=== PATIENT | female | born 1980 | race Caucasian/White ===

== ENCOUNTER 2016-11-17 14:52 | Emergency (ER) | payer OTHER ==
[~2016-11-17] VITALS: Ht 165.1 cm; Wt 84.9 kg
[2016-11-17] MEDS ORDERED: KETOROLAC 30 MG/1 ML ONE (15:26)
[2016-11-17] MEDS ORDERED: ONDANSETRON 2MG/ML, 2ML ONE (15:26)
[2016-11-17] MEDS ORDERED: SODIUM CHLORIDE FLUSH 10ML SYR IVF ONE (15:30)
[2016-11-17] MEDS ORDERED: KETOROLAC 30 MG/1 ML IVPush ONE (15:30)
[2016-11-17] MEDS ORDERED: LORazepam 2 MG/ML, 1ML IVPush ONE (15:30)
[2016-11-17] MEDS ORDERED: ONDANSETRON 2MG/ML, 2ML IVPush ONE (15:30)
[2016-11-17 16:07] LABS: HEMATOCRIT 44.7 % (34.6-47.8); HEMOGLOBIN 14.9 g/dL (11.7-16.4); WHITE BLOOD COUNT 7.1 x10^3/uL (3.4-10)
[2016-11-17 16:17] LABS: BLOOD UREA NITROGEN 9 mg/dL (7-18)
[2016-11-17 16:24] LABS: IS PT STATUS REG ER OR PRE ER? YES
[2016-11-17 16:36] VITALS: BP 128/77
== END 2016-11-17 17:51 | disposition home or self-care (01) ==
LOC: ED 17:23
DX: R07.89 Other chest pain (principal); G43.909 Migraine, unspecified, not intractable, without status migrainosus; M94.0 Chondrocostal junction syndrome [Tietze]
CPT/HCPCS: 36415; 70450; 71020; 80048; 82040; 84484; 85025; 85379; 93005; 96374; 96375; 99285; J1885; J2405

== ENCOUNTER → 2017-08-13 | Outpatient (CLI) | payer OTHER | END | disposition home or self-care (01) | LOC: CVU 11:48 | PROVIDERS: ATTEND Psychiatry & Neurology Neurology | DX: H93.19 Tinnitus, unspecified ear (principal) | CPT/HCPCS: 93880 ==

== ENCOUNTER → 2017-08-19 | Outpatient (CLI) | payer OTHER | LOC: CFH 12:05 | PROVIDERS: ATTEND Psychiatry & Neurology Neurology | DX: H93.13 Tinnitus, bilateral (principal) | CPT/HCPCS: 70551 ==

== ENCOUNTER → 2017-11-21 | Outpatient (CLI) | payer OTHER ==
[2017-11-21 16:06] LABS: BASOPHILS # (AUTO) 0.05 x10^3/uL (0-0.1); BASOPHILS % (AUTO) 1 % (0-1); EOSINOPHILS # (AUTO) 0.06 x10^3/uL (0-0.4); EOSINOPHILS % (AUTO) 1 % (1-7); LYMPHOCYTES # (AUTO) 1.61 x10^3/uL (1-3.4); LYMPHOCYTES % (AUTO) 27 % (22-44); MD NO; MEAN CORPUSCULAR HEMOGLOBIN 29.4 pg (27.0-34.8); MEAN CORPUSCULAR HGB CONC 34.9 g/dL (32.4-35.8); MEAN CORPUSCULAR VOLUME 84.4 fL (80-100); MEAN PLATELET VOLUME 7.4 fL (7.4-10.4); MONOCYTES # (AUTO) 0.38 x10^3/uL (0.2-0.8); MONOCYTES % (AUTO) 6 % (2-9); NEUTROPHILS # (AUTO) 3.79 x10^3/uL (1.8-6.8); NEUTROPHILS % (AUTO) 64 % (42-75); PLATELET COUNT 296 x10^3/uL (130-400); RED BLOOD COUNT 4.88 x10^6/uL (3.82-5.3); RED CELL DISTRIBUTION WIDTH 12.7 % (9.6-15.2)
[2017-11-21 16:12] LABS: ALANINE AMINOTRANSFERASE 22 U/L (12-78); ALBUMIN 3.5 g/dL (3.4-5.0); ANION GAP 4 mmol/L (5-15); CALCIUM 8.7 mg/dL (8.5-10.1); CHLORIDE 110 mmol/L (98-107); CREATININE 0.83 mg/dL (0.55-1.02)
[2017-11-21 16:22] LABS: ALKALINE PHOSPHATASE 57 U/L (45-117); BILIRUBIN,TOTAL 0.2 mg/dL (0.2-1.0); FREE T4 (FREE THYROXINE) 1.11 ng/dL (0.76-1.46); TOTAL PROTEIN 7.2 g/dL (6.4-8.2)
== END | disposition home or self-care (01) ==
LOC: LAB 15:48
PROVIDERS: ATTEND Physician Assistant
DX: R11.2 Nausea with vomiting, unspecified (principal); R13.19 Other dysphagia; R68.81 Early satiety
CPT/HCPCS: 36415; 80053; 82784; 83516; 84439; 84443; 85025

== ENCOUNTER 2017-11-26 05:40 | Day surgery (SDC) | payer OTHER ==
[~2017-11-26] VITALS: Ht 162.6 cm; Wt 81.1 kg
[2017-11-26 06:26] VITALS: BP 132/91
[2017-11-26] MEDS ORDERED: ETON1VAG VG (06:29)
[2017-11-26] MEDS ORDERED: OMEP20TA62 PO (06:29)
[2017-11-26] MEDS ORDERED: NAPR220T77 PO (06:29)
[2017-11-26] MEDS ORDERED: SODIUM CHLORIDE 0.9% 1,000 ML IV SCH (06:30)
[2017-11-26] MEDS ORDERED: LIDOCAINE 1%, 10ML ONE (07:43)
[2017-11-26] MEDS ORDERED: ONDANSETRON 2MG/ML, 2ML ONE (08:48)
[2017-11-26 08:53] LABS: GLUCOSE, CSF 58 mg/dL (40-80); TOTAL PROTEIN,CSF 43 mg/dL (15-45)
[2017-11-26] MEDS ORDERED: ONDANSETRON 2MG/ML, 2ML IVPush ONE (09:00)
[2017-11-26] MEDS ORDERED: ACETAMINOPHEN 500 MG TABLET PO ONE (09:00)
== END 2017-11-26 11:31 | disposition home or self-care (01) ==
LOC: OUT 05:40
PROVIDERS: ATTEND Psychiatry & Neurology Neurology
DX: H93.19 Tinnitus, unspecified ear (principal)
CPT/HCPCS: 62270; 82945; 84157; 89051; J2405; J3490; J7030

== ENCOUNTER 2017-11-28 10:00 | Emergency (ER) | payer OTHER ==
[~2017-11-28] VITALS: Ht 162.6 cm; Wt 81.0 kg
[~2017-11-28 10:00] MED LIST: ETON1VAG VG; NAPR220T77 PO; OMEP20TA62 PO
[2017-11-28] MEDS ORDERED: HYDROcodone/APAP 5/325 TABLET ONE (12:43)
[2017-11-28] MEDS ORDERED: HYDROcodone/APAP 5/325 TABLET PO ONE (13:00)
[2017-11-28] MEDS ORDERED: ONDANSETRON ODT 4 MG ONE ×2 (13:59→15:49)
[2017-11-28] MEDS ORDERED: ONDANSETRON ODT 4 MG PO ONE ×2 (14:00→16:00)
[2017-11-28 15:21] VITALS: BP 108/67
[2017-11-28] MEDS ORDERED: KETOROLAC 30 MG/1 ML ONE (15:49)
[2017-11-28] MEDS ORDERED: SODIUM CHLORIDE 0.9%, 500ML IVBOLUS ONE (16:00)
[2017-11-28] MEDS ORDERED: KETOROLAC 30 MG/1 ML IVPush ONE (16:00)
== END 2017-11-29 09:24 | disposition home or self-care (01) ==
LOC: ED 10:48
DX: G97.1 Other reaction to spinal and lumbar puncture (principal)
CPT/HCPCS: 96374; 99284; J1885; J7040; Q0162